=== PATIENT | male | born 1955 | race Caucasian/White ===

== ENCOUNTER 2017-02-26 13:04 | Observation (INO) ==
[2017-02-26] MEDS ORDERED: ONDANSETRON 4 MG/2 ML VIAL IV STA (13:18)
[2017-02-26] MEDS ORDERED: HYDROmorphone 2 MG/1 ML VIAL IV STA ×4 (13:18→14:46)
[2017-02-26] MEDS ORDERED: ONDANSETRON 4 MG/2 ML VIAL ONE (13:22)
[2017-02-26] MEDS ORDERED: HYDROmorphone 2 MG/1 ML VIAL ONE ×2 (13:22→14:29)
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
[2017-02-26 14:03] LABS: Basophils % 0.4 % (0.0-0.8); Eosinophils # 0.1 10*3/uL (0.0-0.87); Eosinophils % 0.5 % (0.00-10.9); Hemoglobin 14.7 GM/DL (14.0-18.0); Immature Granulocytes % 0.4 %; Immature Granulocytes Absolute 0.04 #; Lymphocytes # 1.4 10*3/uL (1.4-4.0); Lymphocytes % 14.6 % (21.2-54.2); Mean Corpuscular HGB Conc 33.4 GM/DL (32-36); Mean Corpuscular Hemoglobin 28 PG (27-34); Mean Corpuscular Volume 85.1 FL (87-102); Mean Platelet Volume 10.4 FL (9.6-12.0); Monocytes # 0.6 10*3/uL (0.11-0.8); Monocytes % 6.1 % (1.7-12.7); Neutrophils # 7.2 10*3/uL (1.4-7.4); Platelet Count 201 T/CUMM (130-400); Red Blood Count 5.17 MC/CUMM (3.8-5.5); Red Cell Distribution Width 14.8 % (9.3-17.3); White Blood Count 9.3 T/CUMM (4-12)
[2017-02-26 14:31] LABS: Albumin 3.3 G/DL (3.4-5.0); Bilirubin,Total 0.4 MG/DL (0.2-1.0); Calcium 8.8 MG/DL (8.5-10.1); Osmolality,Calculated 282.3 MOS/KG (273-304); Potassium 4.5 MMOL/L (3.5-5.1); Total Protein 6.1 G/DL (6.4-8.3)
[2017-02-26 14:38] LABS: PT Patient Result 10.2 SECS; Partial Thromboplastin Time 25.2 SECS (0-40)
[2017-02-26] MEDS ORDERED: ONDANSETRON 4 MG/2 ML VIAL IV PRN (14:46)
[2017-02-26] MEDS ORDERED: HYDROmorphone 2 MG/1 ML VIAL IV PRN (14:46)
[2017-02-26] MEDS: LACTATED RINGERS 1,000 ML IV SCH ×3 (16:45→19:38)
[2017-02-26] MEDS ORDERED: MAGNESIUM HYDROXIDE SUSP 30 ML UDCUP PO PRN (17:39)
[2017-02-26] MEDS ORDERED: PROMETHAZINE 25 MG/1 ML VIAL IM PRN (17:39)
[2017-02-26] MEDS ORDERED: TEMAZEPAM 15 MG CAPSULE PO PRN (17:39)
--- NOTE | 2017-02-26 17:51 | Orthopedic History & Physical ---
History of Present Illness Chief complaint: Fracture dislocation left ankle History of present illness: Mr. Yoder is a 61 year old male See dictated report Home Medications Medication Instructions Recorded Confirmed Type No Known Home Medications [No 02/26/17 02/26/17 History Known Home Medications] Allergies Allergy/AdvReac Type Severity Reaction Status Date / Time No Known Allergies Allergy Unverified 02/26/17 13:12 Medical,Surgical,& Family Hx - Social History Smoking Status: Smoker, status unknown Frequency of Alcohol Use: Occasionally Type of Drug Use: None Exam - Constitutional Vitals: Period Temp Pulse Resp BP Sys/Negrete Pulse Ox Last 24 Hr 97.7 F-97.7 F 90-90 18-18 177-177/93-93 98 Results - Labs CBC & BMP: 02/26/17 13:53 02/26/17 13:53
--- NOTE | 2017-02-26 18:18 | XRay Report ---
Portable chest. Indication: Respiratory preoperative. The heart and mediastinal contours are unremarkable. The pulmonary vasculature is normal. There is no consolidation, pneumothorax, or pleural effusion. The osseous structures are unremarkable. Impression: No abnormality is seen. PROCEDURE INTERPRETED AT [facility] DEPARTMENT OF RADIOLOGY Final Report Signed by: Dr. Vanessa Mejia
--- NOTE | 2017-02-26 18:22 | XRay Report ---
Left ankle, 3 views. Indication: Preoperative. Comparison: Exam from earlier today. There is an overlying plaster cast in place. There has been relocation of the ankle joint. There is interval improvement in alignment at multiple fracture sites. Degenerative changes are noted at the ankle. There is a prominent plantar calcaneal spur. PROCEDURE INTERPRETED AT [facility] DEPARTMENT OF RADIOLOGY Final Report Signed by: Dr. Vanessa Mejia
[2017-02-26 18:33] LABS: Basophils % 0.2 % (0.0-0.8); Eosinophils % 0.1 % (0.00-10.9); Hematocrit 47.1 VOL% (42.0-52.0); Hemoglobin 15.5 GM/DL (14.0-18.0); Immature Granulocytes % 0.7 %; Lymphocytes # 1.3 10*3/uL (1.4-4.0); Lymphocytes % 9.4 % (21.2-54.2); Mean Corpuscular HGB Conc 32.9 GM/DL (32-36); Mean Corpuscular Hemoglobin 29 PG (27-34); Mean Corpuscular Volume 86.6 FL (87-102); Mean Platelet Volume 10.5 FL (9.6-12.0); Monocytes # 0.7 10*3/uL (0.11-0.8); Monocytes % 5.1 % (1.7-12.7); Neutrophils # 11.8 10*3/uL (1.4-7.4); Neutrophils % 84.5 % (38.7-73.9); Platelet Count 215 T/CUMM (130-400); Red Blood Count 5.44 MC/CUMM (3.8-5.5); Red Cell Distribution Width 14.9 % (9.3-17.3)
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
[2017-02-26 19:12] LABS: Albumin 3.6 G/DL (3.4-5.0); Bilirubin,Total 0.6 MG/DL (0.2-1.0); Calcium 8.6 MG/DL (8.5-10.1); Osmolality,Calculated 282.3 MOS/KG (273-304); Total Protein 6.6 G/DL (6.4-8.3)
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
[2017-02-26] MEDS: HYDROmorphone 2 MG/1 ML VIAL IV PRN (19:43)
[2017-02-27] MEDS: HYDROmorphone 2 MG/1 ML VIAL IV PRN ×3 (01:04→20:39)
[2017-02-27] MEDS: LACTATED RINGERS 1,000 ML IV SCH ×3 (05:44→22:38)
[2017-02-27] MEDS ORDERED: ceFAZolin 2,000 MG in PREMIX 1 EACH IV ONE (10:00)
[2017-02-27] MEDS ORDERED: MIDAZOLAM 2 MG/2 ML VIAL ONE ×2 (10:32→13:09)
[2017-02-27] MEDS ORDERED: fentaNYL 100 MCG/2 ML VIAL ONE ×2 (10:33→13:09)
[2017-02-27] MEDS ORDERED: MAGNESIUM HYDROXIDE SUSP 30 ML UDCUP PO PRN (12:44)
[2017-02-27] MEDS ORDERED: LACTULOSE 20 GM/30 ML UDCUP PO PRN (12:44)
[2017-02-27] MEDS ORDERED: MEPERIDINE 25 MG/1 ML VIAL ONE (13:02)
[2017-02-27] MEDS ORDERED: PROPOFOL 200 MG/20 ML VIAL IV ONE (13:08)
[2017-02-27] MEDS ORDERED: SEVOFLURANE 1 UNIT/15 MINUTE INH ONE (13:08)
[2017-02-27] MEDS ORDERED: ONDANSETRON 4 MG/2 ML VIAL ONE (13:09)
[2017-02-27] MEDS ORDERED: SUCCINYLCHOLINE 200 MG/10 ML VIAL ONE (13:09)
[2017-02-27] MEDS ORDERED: LACTATED RINGERS 1,000 ML IV ONE (13:09)
[2017-02-27] MEDS ORDERED: ROCURONIUM 100 MG/10 ML VIAL IV ONE (13:09)
--- NOTE | 2017-02-27 13:56 | XRay Report ---
Left ankle, 3 views. Indication: Left ankle fracture. Fluoroscopy time, 11 seconds. Intraoperative fluoroscopy was provided for the primary service during open reduction and internal fixation of a fracture of the left ankle. Read digital images were obtained which are presumed to serve the clinical purposes. They were obtained over the left ankle and demonstrate hardware placement in the fibula. PROCEDURE INTERPRETED AT [facility] DEPARTMENT OF RADIOLOGY Final Report Signed by: Dr. Vanessa Mejia
--- NOTE | 2017-02-27 14:35 | Anesthesia Post-Op ---
Anesthesia Post OP - Post Ansesthetic Evaluation Patient seen in post op: Yes Resp: within normal limits CV: within normal limits Mental: within normal limits Temp: within normal limits Vvpe-Tc-Tdhqgijpi: within normal limits Nausea and Vomiting: within normal limits Pain: within normal limits
--- NOTE | 2017-02-27 14:37 | Orthopedic Progress Note ---
Orthopedics - Subjective Interval history: Comfortable postop discussed with he and family up with PT in a.m. possible discharge Exam - Constitutional Vitals: Period Temp Pulse Resp BP Sys/Negrete Pulse Ox Last 24 Hr 96.4 F-97.8 F 62-78 16-20 112-129/67-78 92-100 Results - Labs CBC & BMP: 02/26/17 18:23 02/26/17 18:23 Specialty Discharge - Follow Up or Referrals Follow up with: Maicol Zamora Jr., MD [Physician] -
[2017-02-27] MEDS: ceFAZolin 2,000 MG in PREMIX 1 EACH IV SCH (22:50)
[2017-02-28] MEDS: HYDROmorphone 2 MG/1 ML VIAL IV PRN ×2 (02:38→09:22)
[2017-02-28] MEDS: ceFAZolin 2,000 MG in PREMIX 1 EACH IV SCH ×2 (05:02→12:10)
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
--- NOTE | 2017-02-28 08:49 | Orthopedic Progress Note ---
Orthopedics - Subjective Interval history: Comfortable. Splint clean dry and intact wiggles toes instructed with PT possible home this evening Exam - Constitutional Vitals: Period Temp Pulse Resp BP Sys/Negrete Pulse Ox Last 24 Hr 97 F-98.7 F 66-89 16-20 109-125/62-78 92-100 Results - Labs CBC & BMP: 02/26/17 18:23 02/26/17 18:23 Specialty Discharge - Follow Up or Referrals Follow up with: Maicol Zamora Jr., MD [Physician] -
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
[2017-02-28] MEDS: LACTATED RINGERS 1,000 ML IV SCH (09:18)
[2017-02-28 16:13] VITALS: BP 137/78
== END 2017-02-28 17:10 | disposition home or self-care (01) ==
LOC: EDBD → EDUNIT# → N.ED 13:04 → N.EDINP 14:45 → INTOOBSV 14:45 → N.3E 17:21
PROVIDERS: ADMIT Orthopaedic Surgery; ATTEND Orthopaedic Surgery